=== PATIENT | female | born 1950 | race Asian ===

== ENCOUNTER 2018-01-14 10:59 | Outpatient (CLI) | payer MEDICARE, OTHER ==
--- NOTE | 2018-01-14 12:57 | ULT ---
ULTRASOUND ABDOMEN: HISTORY: Abdominal pain. R74.8, elevated liver enzymes. COMPARISON: None. TECHNIQUE: Real-time, moy scale, and color analysis of the abdomen was performed. Spectral analysis was also p erformed. The visualized portions of the pancreas, aorta, and IVC are unremarkable. Hepatic echotexture is nor mal. The gallbladder is normal. Common bile duct is normal. Right and left kidneys are both normal . IMPRESSION: Normal exam. POS: [facility]
--- NOTE | 2018-01-14 13:24 | ULT ---
ULTRASOUND OF PELVIS TRANSVAGINAL WITH DOPPLER: HISTORY: Pelvic pain. COMPARISON: None. TECHNIQUE: Real-time, moy scale, color Doppler, and spectral analysis of the pelvis performed. Transabdominal and transvaginal approach. The uterus is retroverted. Endometrial thickness is 6 mm, upper limits o f normal. There is fluid within the endometrial cavity. The ovaries are not well seen. Uterine calcifications are present. IMPRESSION: Fluid within the endometrial cavity which is abnormal. Direct visualization is recommended. POS: [facility]
== END 2018-01-14 11:00 | disposition home or self-care (01) ==
LOC: SCSULT 10:59
PROVIDERS: ATTEND Family Medicine
DX: R74.8 Abnormal levels of other serum enzymes (principal)
CPT/HCPCS: 76700; 76856

== ENCOUNTER 2018-10-12 13:18 | Outpatient (CLI) | payer MEDICARE, OTHER ==
--- NOTE | 2018-10-12 14:37 | MRI ---
MRI LUMBAR SPINE WITHOUT CONTRAST: INDICATIONS: Low back pain that radiates down the left leg and left hip. COMPARISON: None. FINDINGS: There are remote appearing superior endplate compression abnormalities of L3, L1, and T12. The conus is seen to terminate at L1. The visualized retroperitoneum demonstrates small T2 hyperintense, T1 hypointense lesions involving t he left mid gland and lower pole left kidney, likely reflecting a small cyst. At L5-S1, there is mild facet joint degenerative change and broad-based bulge, but no appreciable amrit tral canal or neural foraminal narrowing. At L4-L5, there is a large disk osteophyte complex with facet hypertrophy, inducing mild central thuy l narrowing and mild bilateral neural foraminal narrowing. At L3-L4, there is a broad-based bulge with facet hypertrophy, inducing mild central canal narrowing and mild bilateral neural foraminal narrowing. At L2-L3, there is a broad-based bulge with facet hypertrophy, inducing some mild central canal narro wing and mild neural foraminal encroachment, without impingement. At L1-L2, there is mild facet joint degenerative change and broad-based bulge, but no appreciable amrit tral canal or neural foraminal narrowing. At T12-L1, there is no appreciable central canal or neural foraminal narrowing. IMPRESSION: 1. Mild to moderate multilevel spondylosis of the lumbar spine with mild central canal and mild neur al foraminal narrowing seen at the L2-L3 through L4-L5 levels. 2. Remote mild superior endplate compression abnormalities of L3, L1, and T12. POS: [facility]
== END 2018-10-12 13:19 | disposition home or self-care (01) ==
LOC: SCSMRI 13:18
PROVIDERS: ATTEND Specialist
DX: M48.062 Spinal stenosis, lumbar region with neurogenic claudication (principal); M47.816 Spondylosis without myelopathy or radiculopathy, lumbar region
CPT/HCPCS: 72148